=== PATIENT | male | born 1960 | race American Indian/Alaskan Native ===

== ENCOUNTER 2019-06-18 18:17 | Inpatient (IN) | payer MEDICAID ==
--- NOTE | 2019-06-18 18:52 | XRay Report ---
CHEST 1 VIEW 06/18/2019 6:31 PM INDICATION / CLINICAL INFORMATION: SOB. COMPARISON: None available. FINDINGS: SUPPORT DEVICES: None. HEART / MEDIASTINUM: No significant abnormality. LUNGS / PLEURA: Left upper lobe nodular parenchymal density with several adjacent surgical clips. Add itional pulmonary nodule within left mid lung field. No pneumothorax. ADDITIONAL FINDINGS: No significant additional findings. IMPRESSION: 1. Left-sided pulmonary nodules. Recommend chest CT. Signer Name: Raymond Sosa MD Signed: 06/18/2019 6:48 PM Workstation Name: [id number]
[2019-06-18 19:19] LABS: Basophils % (Auto) 0.7 % (0.0-1.8); Eosinophils # (Auto) 0.3 K/mm3 (0.0-0.4); Eosinophils % (Auto) 6.7 % (0.0-4.3); Hematocrit 44.7 % (35.5-45.6); Hemoglobin 14.7 gm/dl (11.8-15.2); Lymphocytes # (Auto) 1.4 K/mm3 (1.2-5.4); Lymphocytes % (Auto) 28.8 % (13.4-35.0); Mean Corpuscular HGB Conc 33 % (32-34); Mean Corpuscular Volume 104 fl (84-94); Monocytes # (Auto) 0.3 K/mm3 (0.0-0.8); Monocytes % (Auto) 7.2 % (0.0-7.3); Platelet Count 292 K/mm3 (140-440); Red Blood Count 4.28 M/mm3 (3.65-5.03); Red Cell Distribution Width 15.5 % (13.2-15.2)
--- NOTE | 2019-06-18 19:26 | Emergency Department Report ---
HPI - General Chief Complaint: Dyspnea/Respdistress Time Seen by Provider: 06/18/19 18:23 - HPI HPI: 59-year-old -[place] male presents to the emergency department with shortness of breath and/or respiratory distress. The patient had been using his nebulizer treatments at home without any relief. EMS arrived to find the patient short of breath and with a pulse ox in the 60s. He was given Solu- Medrol, epinephrine and some oxygen supplementation. At one point the patient told EMS that he was feeling like he was going to pass out and then EMS said he did. Since that time, and upon arrival, the patient has been going in and out of consciousness and responsiveness. The patient has a history of lung cancer in the left lung for which she receives some recent radiation therapy. All of his physicians are through the [facility]. ED Past Medical Hx - Past Medical History Hx of Cancer: Yes (lung) Hx HIV: Yes Additional medical history: chronic back pain - Surgical History Past Surgical History?: No - Social History Smoking Status: Current Every Day Smoker Substance Use Type: Alcohol ED Review of Systems ROS: Stated complaint: PAULA Other details as noted in HPI Comment: Unobtainable due to pts medical conditions Respiratory: shortness of breath Physical Exam - Physical Exam Vital Signs: Vital Signs 06/18/19 06/18/19 06/18/19 18:28 18:32 18:38 Temperature 97.7 F Pulse Rate 118 H 116 H Respiratory 38 H 22 Rate Blood Pressure Blood Pressure 196/124 166/106 [Left] O2 Sat by Pulse 100 100 100 Oximetry 06/18/19 06/18/19 18:54 18:57 Temperature Pulse Rate 100 H 106 H Respiratory 20 26 H Rate Blood Pressure 123/93 Blood Pressure 123/93 [Left] O2 Sat by Pulse 100 100 Oximetry Physical Exam: GENERAL: Patient is ill-appearing. HEENT: Normocephalic. Atraumatic. Patient has moist mucous membranes. EYES: Extraocular motions are intact. Pupils equal and reactive to light bilaterally. NECK: Supple. Trachea is midline. CHEST/LUNGS: Decreased breath sounds. Patient has shallow respirations with some accessory muscle use. There is respiratory distress noted. HEART/CARDIOVASCULAR: Regular. There is moderate tachycardia. There is no murmur. ABDOMEN: Abdomen is soft, nontender. Patient has normal bowel sounds. There is no abdominal distention. SKIN:Skin is warm and dry. . NEURO: The patient is unresponsive except for to painful stimuli. MUSCULOSKELETAL: There is no tenderness or deformity. There is no evidence of acute injury. ED Course Vital Signs 06/18/19 06/18/19 06/18/19 18:28 18:32 18:38 Temperature 97.7 F Pulse Rate 118 H 116 H Respiratory 38 H 22 Rate Blood Pressure Blood Pressure 196/124 166/106 [Left] O2 Sat by Pulse 100 100 100 Oximetry 06/18/19 06/18/19 18:54 18:57 Temperature Pulse Rate 100 H 106 H Respiratory 20 26 H Rate Blood Pressure 123/93 Blood Pressure 123/93 [Left] O2 Sat by Pulse 100 100 Oximetry - ABG Interpretation Ph: 7.039 PCO2: 85 PO2: 156 Bicarbonate: 23 Interpretation: respiratory acidosis ED Medical Decision Making - Lab Data Result diagrams: 06/18/19 18:44 06/18/19 18:44 - EKG Data -: EKG Interpreted by Id EKG shows normal: sinus rhythm, axis, intervals, QRS complexes, ST-T waves Rate: tachycardia - EKG Data When compared to previous EKG there are: previous EKG unavailable Interpretation: other (sinus tachycardia at 126 bpm) - Radiology Data Radiology results: report reviewed, image reviewed CHEST 1 VIEW 06/18/2019 6:31 PM INDICATION / CLINICAL INFORMATION: SOB. COMPARISON: None available. FINDINGS: SUPPORT DEVICES: None. HEART / MEDIASTINUM: No significant abnormality. LUNGS / PLEURA: Left upper lobe nodular parenchymal density with several adjacent surgical clips. Additional pulmonary nodule within left mid lung field. No pneumothorax. ADDITIONAL FINDINGS: No significant additional findings. IMPRESSION: 1. Left-sided pulmonary nodules. Recommend chest CT. CTA CHEST WITH IV CONTRAST INDICATION / CLINICAL INFORMATION: SOB, elevated dimer. TECHNIQUE: Axial CT images were obtained through the chest after injection of 100 mL IV contrast. 3 plane MIP and/or 3D reconstructions were produced. All CT scans at this location are performed using CT dose reduction for [facility] by means of automated exposure control. COMPARISON: Chest radiograph earlier today. FINDINGS: PULMONARY ARTERIES: No pulmonary emboli. THORACIC AORTA: No significant abnormality. HEART: No significant abnormality. CORONARY ARTERIES: Coronary artery calcifications are present. PLEURA: No pleural effusion. No pneumothorax. LYMPH NODES: No significant adenopathy. LUNGS: There is a 2 cm noncalcified pulmonary nodule in the left upper lobe. This was noted on recent chest radiograph. Additionally there is spiculated pulmonary mass in the left upper lobe adjacent to the pleura measuring approximately 2.4 cm. No additional abnormal findings are present within the left lung. No nodules are present within the right lung. There is a large bleb in the right lung apex. ADDITIONAL FINDINGS: None. UPPER ABDOMEN: No acute findings. SKELETAL STRUCTURES: No significant osseous abnormality. IMPRESSION: 1. No CT evidence for pulmonary embolism. 2. There is a 2.4 cm spiculated mass in the left upper lobe. There are 2 surgical clips adjacent to the mass. The appearance is worrisome for a bronchogenic carcinoma. 3. 2 cm noncalcified pulmonary nodule in the left upper lobe, just lateral to the pulmonary hilum. This is highly worrisome for pulmonary metastasis. 4. Right apical large bleb. - Medical Decision Making His patient presents with some shortness of breath and respiratory distress, hypoxia prior to arrival and altered mental status. An ABG was done that showed the patient to have hypercapnia with respiratory acidosis. The patient became more awake and alert after getting increased oxygen supplementation so we were able to use a BiPAP. Chest x-ray showed some left-sided pulmonary nodules. Lab s show some elevated LFTs, lactic acidosis, and an elevated d-dimer level. CT angiography was done that does not show any pulmonary embolism but shows a 2.4 cm spiculated mass in the left lung, another pulmonary nodule, and a right apical large bleb. Another ABG was done after the patient had been on the BiPAP and his PCO2 had come down to about 50. The patient is much more awake, alert and oriented. He will be admitted to the hospital for further evaluation and treatment was accepted for admission by the hospitalist, Dr. Jason. - Differential Diagnosis COPD, PE, Pneumonia, CHF Critical Care Time: Yes Critical care time in (mins) excluding proc time.: 35 Critical care attestation.: If time is entered above; I have spent that time in minutes in the direct care of this critically ill patient, excluding procedure time. Critical care time was spent on this patient and doing his initial evaluation, multiple re- evaluations, ordering and interpretation of labs and imaging, BiPAP management, discussion with the patient and his family. Critical Care Time: 35 minutes ED Disposition Clinical Impression: Acute respiratory distress, Hypercapnic acidosis, COPD exacerbation Lung cancer Qualifiers: Laterality: left Lung location: unspecified part of lung Qualified Code(s): C34.92 - Malignant neoplasm of unspecified part of left bronchus or lung Disposition: DC-09 OP ADMIT IP TO THIS HOSP Is pt being admited?: Yes Condition: Serious Time of Disposition: 21:35
[2019-06-18 19:47] LABS: Alanine Aminotransferase 81 units/L (7-56); Albumin 4.3 g/dL (3.9-5); BUN/Creatinine Ratio 9; Blood Urea Nitrogen 12 mg/dL (9-20); Hemolysis Index 15
--- NOTE | 2019-06-18 20:48 | Cat Scan Report ---
CTA CHEST WITH IV CONTRAST INDICATION / CLINICAL INFORMATION: SOB, elevated dimer. TECHNIQUE: Axial CT images were obtained through the chest after injection of 100 mL IV contrast. 3 plane MIP an d/or 3D reconstructions were produced. All CT scans at this location are performed using CT dose redu ction for [facility] by means of automated exposure control. COMPARISON: Chest radiograph earlier today. FINDINGS: PULMONARY ARTERIES: No pulmonary emboli. THORACIC AORTA: No significant abnormality. HEART: No significant abnormality. CORONARY ARTERIES: Coronary artery calcifications are present. PLEURA: No pleural effusion. No pneumothorax. LYMPH NODES: No significant adenopathy. LUNGS: There is a 2 cm noncalcified pulmonary nodule in the left upper lobe. This was noted on recent chest radiograph. Additionally there is spiculated pulmonary mass in the left upper lobe adjacent to the pleura measuring approximately 2.4 cm. No additional abnormal findings are present within the le ft lung. No nodules are present within the right lung. There is a large bleb in the right lung apex. ADDITIONAL FINDINGS: None. UPPER ABDOMEN: No acute findings. SKELETAL STRUCTURES: No significant osseous abnormality. IMPRESSION: 1. No CT evidence for pulmonary embolism. 2. There is a 2.4 cm spiculated mass in the left upper lobe. There are 2 surgical clips adjacent to t he mass. The appearance is worrisome for a bronchogenic carcinoma. 3. 2 cm noncalcified pulmonary nodule in the left upper lobe, just lateral to the pulmonary hilum. Th is is highly worrisome for pulmonary metastasis. 4. Right apical large bleb. Signer Name: Rica Wells MD Signed: 06/18/2019 8:44 PM Workstation Name: [id number]. [id number]
[2019-06-18] MEDS ORDERED: methylPREDNISolone Sod Succinate 125 MG/2 ML INJ IV ONE (21:35)
[2019-06-18] MEDS ORDERED: ACETAMINOPHEN 325 MG TAB PO PRN (22:11)
[2019-06-18] MEDS ORDERED: ONDANSETRON 4 MG/2 ML INJ IV PRN (22:11)
[2019-06-18] MEDS ORDERED: MAGNESIUM HYDROXIDE (MOM) ORAL LIQD UDC PO PRN (22:11)
--- NOTE | 2019-06-18 22:25 | History and Physical Report ---
History of Present Illness Date of examination: 06/18/19 Date of admission: 06/18/2019 Chief complaint: Shortness of breath Past History Past Medical History: COPD, HIV/AIDS, other (Lung cancer) Past Surgical History: No surgical history Social history: full code Family history: diabetes, hypertension, other (asthma) Medications and Allergies Allergies Allergy/AdvReac Type Severity Reaction Status Date / Time No Known Allergies Allergy Unverified 07/12/13 10:15 Active Meds: Active Medications Acetaminophen (Tylenol) 650 mg PO Q6H PRN PRN Reason: Pain MILD(1-3)/Fever >100.5/BELL Albuterol/Ipratropium (Duoneb *Not For Prn Use*) 1 ampul IH Q4HRT [facility] Magnesium Hydroxide (Milk Of Magnesia) 30 ml PO Q4H PRN PRN Reason: Constipation Methylprednisolone Sodium Succinate (Solu-Medrol) 40 mg IV Q6HR [facility] Ondansetron HCl (Zofran) 4 mg IV Q8H PRN PRN Reason: Nausea And Vomiting Sodium Chloride (Sodium Chloride Flush Syringe 10 Ml) 10 ml IV BID [facility] Sodium Chloride (Sodium Chloride Flush Syringe 10 Ml) 10 ml IV PRN PRN PRN Reason: LINE FLUSH Review of Systems Constitutional: no fever, no chills Cardiovascular: chest pain, no palpitations Respiratory: cough, shortness of breath Gastrointestinal: no abdominal pain, no nausea, no vomiting, no diarrhea Genitourinary Male: no dysuria, no hematuria, no urinary frequency Musculoskeletal: no neck pain Integumentary: no rash, no pruritis Neurological: no weakness, no seizures, no headaches Exam - Constitutional Vitals: Temp Pulse Resp BP Pulse Ox 97.7 F 104 H 22 132/90 99 06/18/19 18:38 06/18/19 21:26 06/18/19 21:26 06/18/19 21:31 06/18/19 21:31 General appearance: Present: no acute distress, well-nourished - EENT Eyes: Present: PERRL, EOM intact ENT: hearing intact, clear oral mucosa, dentition normal - Neck Neck: Present: supple, normal ROM - Respiratory Respiratory: bilateral: wheezing - Cardiovascular Rhythm: regular Heart Sounds: Present: S1 & S2 - Extremities Extremities: no ischemia, pulses intact, pulses symmetrical, No edema, Full ROM Peripheral Pulses: within normal limits - Abdominal General gastrointestinal: Present: soft, non-tender, non-distended - Integumentary Integumentary: Present: clear, warm, dry - Musculoskeletal Musculoskeletal: strength equal bilaterally - Psychiatric Psychiatric: appropriate mood/affect, intact judgment & insight, cooperative - Neurologic Neurologic: CNII-XII intact, moves all extremities Results - Labs CBC & Chem 7: 06/18/19 18:44 06/18/19 18:44 Labs: Abnormal lab results 06/18/19 06/18/19 06/18/19 Range/Units 18:44 18:44 18:44 MCV 104 H (84-94) fl MCH 34 H (28-32) pg RDW 15.5 H (13.2-15.2) % Eos % (Auto) 6.7 H (0.0-4.3) % D-Dimer 845.61 H (0-234) ng/mlDDU POC ABG pH (7.35-7.45) POC ABG pO2 (80-105) Carbon Dioxide 17 L (22-30) mmol/L Glucose 159 H (75-100) mg/dL Lactic Acid (0.7-2.0) mmol/L AST 139 H (5-40) units/L ALT 81 H (7-56) units/L 06/18/19 06/18/19 Range/Units 18:44 18:44 MCV (84-94) fl MCH (28-32) pg RDW (13.2-15.2) % Eos % (Auto) (0.0-4.3) % D-Dimer (0-234) ng/mlDDU POC ABG pH 7.039 L (7.35-7.45) POC ABG pO2 156 H (80-105) Carbon Dioxide (22-30) mmol/L Glucose (75-100) mg/dL Lactic Acid 3.20 H* (0.7-2.0) mmol/L AST (5-40) units/L ALT (7-56) units/L Assessment and Plan - Patient Problems (1) Acute respiratory distress Current Visit: Yes Status: Acute (2) COPD exacerbation Current Visit: Yes Status: Acute (3) Hypercapnic acidosis Current Visit: Yes Status: Acute (4) Lung cancer Current Visit: Yes Status: Acute (5) HIV (human immunodeficiency virus infection) Current Visit: Yes Status: Acute (6) DVT prophylaxis Current Visit: Yes Status: Acute
[2019-06-19] MEDS ORDERED: IPRATROPIUM/ALBUTEROL SULFATE 3 ML AMPUL.NEB IH ONE ×2 (02:53→07:54)
[2019-06-19] MEDS: IPRATROPIUM/ALBUTEROL SULFATE 3 ML AMPUL.NEB IH SCH ×4 (03:03→22:36)
[2019-06-19 03:40] LABS: Hematocrit 41.2 % (35.5-45.6); Hemoglobin 13.6 gm/dl (11.8-15.2); Mean Corpuscular HGB Conc 33 % (32-34); Mean Corpuscular Volume 103 fl (84-94); Platelet Count 259 K/mm3 (140-440); Red Cell Distribution Width 15.2 % (13.2-15.2)
[2019-06-19 03:49] LABS: Partial Thromboplastin Time 23.6 Sec. (24.2-36.6)
[2019-06-19 03:54] LABS: INR 0.85 (0.87-1.13)
[2019-06-19 03:58] LABS: BUN/Creatinine Ratio 13; Blood Urea Nitrogen 15 mg/dL (9-20); Calcium 9.5 mg/dL (8.4-10.2); Hemolysis Index 1
[2019-06-19] MEDS: methylPREDNISolone Sod Succinate 40 MG/1 ML INJ IV SCH ×4 (04:36→21:04)
[2019-06-19 04:58] LABS: Basophils % (Manual) 0 % (0.0-1.8); Platelet Estimate Consistent w Auto; RBC Morphology Normal; Total Cells Counted 100
--- NOTE | 2019-06-19 06:11 | History and Physical Report ---
History of Present Illness Date of examination: 06/18/19 Date of admission: 06/18/19 21:36 Chief complaint: Shortness of breath Altered mental status History of present illness: 59-year-old -[place] Citizen male with known history of left lung cancer and COPD brought into the emergency room today with shortness of breath. Patient was said to have been found by EMS having difficulty breathing with oxygen saturation in the 60s. He was given Solu-Medrol, epinephrine and placed on oxygen. He was said to be going in and out of responsiveness in route to the hospital. Denies any fever or chills, no nausea vomiting and no diarrhea. Patient still continues to smoke 1 to 2 cigarettes daily and also uses almost marijuana on a daily basis. Upon arrival in the emergency room patient was placed on BiPAP and given some nebulizing treatment with improvement in his oxygen saturation. He had an elevated d-dimer however a CT angiogram was negative for pulmonary embolism. Past History Past Medical History: COPD, HIV/AIDS, other (Lung cancer, chronic back pain) Past Surgical History: No surgical history Social history: full code Family history: diabetes, hypertension, other (asthma) Medications and Allergies Allergies Allergy/AdvReac Type Severity Reaction Status Date / Time No Known Allergies Allergy Unverified 07/12/13 10:15 Active Meds: Active Medications Acetaminophen (Tylenol) 650 mg PO Q6H PRN PRN Reason: Pain MILD(1-3)/Fever >100.5/BELL Albuterol/Ipratropium (Duoneb *Not For Prn Use*) 1 ampul IH Q4HRT [facility] Last Admin: 06/19/19 03:03 Dose: 1 ampul Documented by: Magnesium Hydroxide (Milk Of Magnesia) 30 ml PO Q4H PRN PRN Reason: Constipation Methylprednisolone Sodium Succinate (Solu-Medrol) 40 mg IV Q6H [facility] Last Admin: 06/19/19 04:36 Dose: 40 mg Documented by: Ondansetron HCl (Zofran) 4 mg IV Q8H PRN PRN Reason: Nausea And Vomiting Sodium Chloride (Sodium Chloride Flush Syringe 10 Ml) 10 ml IV BID [facility] Sodium Chloride (Sodium Chloride Flush Syringe 10 Ml) 10 ml IV PRN PRN PRN Reason: LINE FLUSH Review of Systems Constitutional: no weight loss, no fever, no chills Ears, nose, mouth and throat: no headache Cardiovascular: no chest pain, no palpitations Respiratory: shortness of breath, wheezing, no cough Gastrointestinal: no abdominal pain, no nausea, no vomiting, no diarrhea, no BRBPR, no melena Genitourinary Male: no dysuria, no hematuria, no urinary frequency, no nocturia Musculoskeletal: no neck stiffness, no neck pain Integumentary: no rash, no pruritis Neurological: change in mentation, no seizures, no syncope Psychiatric: no anxiety Exam - Constitutional Vitals: Temp Pulse Resp BP Pulse Ox 97.7 F 86 19 151/97 95 06/18/19 18:38 06/19/19 04:01 06/19/19 04:01 06/19/19 04:01 06/19/19 04:01 General appearance: Present: mild distress, well-nourished - EENT Eyes: Present: PERRL, EOM intact ENT: hearing intact, clear oral mucosa - Neck Neck: Present: supple, normal ROM - Respiratory Respiratory: bilateral: wheezing - Cardiovascular Rhythm: regular Heart Sounds: Present: S1 & S2 - Extremities Extremities: no ischemia, pulses intact, pulses symmetrical, No edema, Full ROM Peripheral Pulses: within normal limits - Abdominal General gastrointestinal: Present: soft, non-tender, non-distended - Integumentary Integumentary: Present: clear, warm, dry - Musculoskeletal Musculoskeletal: strength equal bilaterally - Psychiatric Psychiatric: appropriate mood/affect, intact judgment & insight - Neurologic Neurologic: CNII-XII intact, moves all extremities Results - Labs CBC & Chem 7: 06/19/19 03:05 06/19/19 03:05 Labs: Abnormal lab results 06/18/19 06/18/19 06/18/19 Range/Units 18:44 18:44 18:44 MCV 104 H (84-94) fl MCH 34 H (28-32) pg RDW 15.5 H (13.2-15.2) % Eos % (Auto) 6.7 H (0.0-4.3) % Seg Neuts % (Manual) (40.0-70.0) % Lymphocytes % (Manual) (13.4-35.0) % Lymphocytes # (Manual) (1.2-5.4) K/mm3 PT (12.2-14.9) Sec. INR (0.87-1.13) APTT (24.2-36.6) Sec. D-Dimer 845.61 H (0-234) ng/mlDDU POC ABG pH (7.35-7.45) POC ABG pCO2 (35-45) POC ABG pO2 (80-105) Carbon Dioxide 17 L (22-30) mmol/L Glucose 159 H (75-100) mg/dL Lactic Acid (0.7-2.0) mmol/L AST 139 H (5-40) units/L ALT 81 H (7-56) units/L 06/18/19 06/18/19 06/18/19 Range/Units 18:44 18:44 21:25 MCV (84-94) fl MCH (28-32) pg RDW (13.2-15.2) % Eos % (Auto) (0.0-4.3) % Seg Neuts % (Manual) (40.0-70.0) % Lymphocytes % (Manual) (13.4-35.0) % Lymphocytes # (Manual) (1.2-5.4) K/mm3 PT (12.2-14.9) Sec. INR (0.87-1.13) APTT (24.2-36.6) Sec. D-Dimer (0-234) ng/mlDDU POC ABG pH 7.039 L 7.289 L (7.35-7.45) POC ABG pCO2 51.1 H (35-45) POC ABG pO2 156 H 252 H (80-105) Carbon Dioxide (22-30) mmol/L Glucose (75-100) mg/dL Lactic Acid 3.20 H* (0.7-2.0) mmol/L AST (5-40) units/L ALT (7-56) units/L 06/19/19 06/19/19 06/19/19 Range/Units 03:05 03:05 03:05 MCV 103 H (84-94) fl MCH 34 H (28-32) pg RDW (13.2-15.2) % Eos % (Auto) (0.0-4.3) % Seg Neuts % (Manual) 94.0 H (40.0-70.0) % Lymphocytes % (Manual) 4.0 L (13.4-35.0) % Lymphocytes # (Manual) 0.2 L (1.2-5.4) K/mm3 PT 11.7 L (12.2-14.9) Sec. INR 0.85 L (0.87-1.13) APTT 23.6 L (24.2-36.6) Sec. D-Dimer (0-234) ng/mlDDU POC ABG pH (7.35-7.45) POC ABG pCO2 (35-45) POC ABG pO2 (80-105) Carbon Dioxide 21 L (22-30) mmol/L Glucose 220 H (75-100) mg/dL Lactic Acid (0.7-2.0) mmol/L AST (5-40) units/L ALT (7-56) units/L Assessment and Plan - Patient Problems (1) Acute respiratory distress Current Visit: Yes Status: Acute Plan to address problem: This is secondary to exacerbation of COPD with accompanying hypercapnia. Patient has been placed on BiPAP. We will keep oxygen saturation greater or equal to 92%. (2) COPD exacerbation Current Visit: Yes Status: Acute Plan to address problem: Placed on nebulizing treatments and IV steroid. (3) Hypercapnic acidosis Current Visit: Yes Status: Acute Plan to address problem: Possibly secondary to the COPD. He has been placed on BiPAP. We placed a consult to pulmonology for further evaluation and recommendation. (4) Lung cancer Current Visit: Yes Status: Acute Qualifiers: Laterality: left Lung location: unspecified part of lung Qualified Code(s): C34.92 - Malignant neoplasm of unspecified part of left bronchus or lung Plan to address problem: Patient has received radiation therapy. He receives his care through the [facility]. (5) HIV (human immunodeficiency virus infection) Current Visit: Yes Status: Acute Plan to address problem: Viral load currently undetectable. Patient follows up with his private physician. (6) DVT prophylaxis Current Visit: Yes Status: Acute Plan to address problem: We will placed on subcutaneous heparin.
[2019-06-19] MEDS ORDERED: methylPREDNISolone Sod Succinate 40 MG/1 ML INJ ONE ×2 (06:20→10:02)
[2019-06-19] MEDS ORDERED: ALBUTEROL 8.5 GM INHALATION IH PRN (08:07)
[2019-06-19] MEDS ORDERED: ACETAMINOPHEN 325 MG TAB ONE (08:19)
[2019-06-19] MEDS ORDERED: NON-FORMULARY EACH (Bictegrav/Emtricit/Tenofov Ala 1 TAB) PO SCH (10:00)
[2019-06-19] MEDS ORDERED: MIRTAZAPINE 45 MG PO SCH (10:00)
[2019-06-19] MEDS ORDERED: FOLIC ACID 1 MG TAB ONE (10:02)
[2019-06-19] MEDS: FOLIC ACID 1 MG TAB PO SCH (11:22)
[2019-06-19] MEDS: LISINOPRIL 20 MG TAB PO SCH (12:51)
[2019-06-19] MEDS: hydrOXYzine HCL 25 MG TAB PO SCH (12:51)
[2019-06-19] MEDS: CHLORTHALIDONE 25 MG TAB PO SCH (12:52)
--- NOTE | 2019-06-19 13:39 | Event Note ---
Date: 06/19/19 Patient seen and examined. This is a follow-up from an admission earlier this morning. We will continue plan as outlined in H&P. Time spent equals 25 minutes with greater than 50% spent on coordination of care and counseling.
[2019-06-19] MEDS ORDERED: ALBUTEROL 2.5 MG/3 ML NEBU IH PRN (14:00)
--- NOTE | 2019-06-19 14:41 | Consultation ---
History of Present Illness Consult date: 06/19/19 Reason for consult: dyspnea, asthma, COPD History of present illness: PULMONARY and CRITICAL CARE CONSULTATION DR. Mohsen Snyder Thank you for asking us to participate in the care of this patient. 59yo AAM with PMH of Stage 1 nodule/left lung cancer ([place]-10/2018 with radiation), COPD, HTN, & HIV+ brought into the emergency room today with shortness of breath. Patient was said to have been found by EMS having difficulty breathing with oxygen saturation in the 60s. He was given Solu- Medrol, epinephrine and placed on oxygen. He was said to be going in and out of responsiveness in route to the hospital. Denies any fever or chills, no nausea vomiting and no diarrhea. Upon arrival in the emergency room patient was placed on BiPAP and given some nebulizing treatment with improvement in his oxygen saturation. He had an elevated d-dimer however a CT angiogram was negative for pulmonary embolism. Patient is awake and alert. Patient has O2 saturation of 96% on room air. Patient is afebrile with no leukocytosis. Patient has history of 47 pack years (1.5 packs daily), still continues to smoke 1 to 2 cigarettes daily, and also uses almost marijuana on a daily basis. Patient ABG 06/18/2019 pH 7.3, pCO2 51, pO2 252, HCO3 25, O2 Sat 100, FiO2 60%. Chest X-ray Reported 06/18/2019 Left upper lobe nodular parenchymal density with several adjacent surgical clips. Additional pulmonary nodule within left mid lung field. No pneumothorax. Left-sided pulmonary nodules. Recommend chest CT. Chest CTA Reported 06/18/[address] evidence for pulmonary embolism. 2. There is a 2.4 cm spiculated mass in the left upper lobe. There are 2 surgical clips adjacent to the mass. The appearance is worrisome for a bronchogenic carcinoma. 3. 2 cm noncalcified pulmonary nodule in the left upper lobe, just lateral to the pulmonary hilum. This is highly worrisome for pulmonary metastasis. 4. Right apical large bleb. Past History Past Medical History: COPD, HIV/AIDS, hypertension, other (Lung cancer, chronic back pain) Past Surgical History: No surgical history Social history: , smoking, alcohol abuse, full code Family history: diabetes, hypertension, other (asthma) Medications and Allergies Allergies Allergy/AdvReac Type Severity Reaction Status Date / Time No Known Allergies Allergy Unverified 07/12/13 10:15 Home Medications Medication Instructions Recorded Confirmed Last Taken Type Albuterol INH(or & Nicu Only) 1 puff IH Q6HR PRN 06/19/19 06/19/19 06/17/19 History [ProAir HFA Inhaler] Bictegrav/Emtricit/Tenofov Ala 1 tab PO QDAY 06/19/19 06/19/19 06/17/19 History [Biktarvy 50-200-25 mg (Nf)] Chlorthalidone [Thalitone] 25 mg PO QDAY 06/19/19 06/19/19 06/17/19 History Folic Acid 1 tab PO QDAY 06/19/19 06/19/19 06/17/19 History Mirtazapine [Remeron 45mg TAB] 45 mg PO QDAY 06/19/19 06/19/19 06/17/19 History Sildenafil Citrate [Viagra] 1 tab PO PRN 06/19/19 06/19/19 06/17/19 History Tiotropium Gardiner [Spiriva] 1 puff IH QDAY 06/19/19 06/19/19 06/17/19 History Triamcinolone 0.1% [Kenalog 0.1% 1 applic TP TID 06/19/19 06/19/19 06/17/19 History CREAM] hydrOXYzine HCL [Atarax] 1 tab PO QDAY 06/19/19 06/19/19 06/17/19 History lisinopriL [Zestril TAB] 1 tab PO QDAY 06/19/19 06/19/19 06/17/19 History Active Meds: Active Medications Acetaminophen (Tylenol) 650 mg PO Q6H PRN PRN Reason: Pain MILD(1-3)/Fever >100.5/BELL Albuterol (Proventil) 2.5 mg IH Q6HRT PRN PRN Reason: Dyspnea Albuterol/Ipratropium (Duoneb *Not For Prn Use*) 1 ampul IH Q4HRT [facility] Last Admin: 06/19/19 13:49 Dose: 1 ampul Documented by: Chlorthalidone (Thalitone) 25 mg PO QDAY [facility] Last Admin: 01/13/20 12:52 Dose: Not Given Documented by: Folic Acid (Folvite) 1 mg PO QDAY [facility] Last Admin: 06/19/19 11:22 Dose: 1 mg Documented by: Hydroxyzine HCl (Atarax) 25 mg PO QDAY [facility] Last Admin: 06/19/19 12:51 Dose: 25 mg Documented by: Lisinopril (Zestril) 20 mg PO QDAY [facility] Last Admin: 06/19/19 12:51 Dose: 20 mg Documented by: Magnesium Hydroxide (Milk Of Magnesia) 30 ml PO Q4H PRN PRN Reason: Constipation Methylprednisolone Sodium Succinate (Solu-Medrol) 40 mg IV Q6H [facility] Last Admin: 06/19/19 14:02 Dose: 40 mg Documented by: Mirtazapine (Remeron) 15 mg PO QHS [facility] Mirtazapine (Remeron) 30 mg PO QHS [facility] Miscellaneous Medication (Bictegrav/Emtricit/Tenofov Ala) 1 tab PO QDAY [facility] Ondansetron HCl (Zofran) 4 mg IV Q8H PRN PRN Reason: Nausea And Vomiting Sodium Chloride (Sodium Chloride Flush Syringe 10 Ml) 10 ml IV BID [facility] Last Admin: 06/19/19 12:52 Dose: Not Given Documented by: Sodium Chloride (Sodium Chloride Flush Syringe 10 Ml) 10 ml IV PRN PRN PRN Reason: LINE FLUSH Tiotropium Gardiner (Spiriva) 1 puff IH QDAY [facility] Review of Systems All systems: negative Physical Examination Vital signs: Vital Signs Pulse Resp BP Pulse Ox 132 H 19 233/142 99 06/18/19 18:17 06/18/19 18:17 06/18/19 18:17 06/18/19 18:17 General appearance: no acute distress, alert Eyes: non-icteric ENT: oropharynx moist Neck: supple Effort: normal Cardiovascular: regular rate and rhythm Gastrointestinal: normoactive bowel sounds, soft, non-tender Integumentary: normal Extremities: no cyanosis Musculoskeletal: no deformities Gait: normal gait, normal posture normal mental status mood appropriate, affect normal Results - Laboratory Findings CBC and BMP: 06/19/19 03:05 06/19/19 03:05 ABG POC ABG pH 7.289 (7.35-7.45) L 06/18/19 21:25 POC ABG pCO2 51.1 (35-45) H 06/18/19 21:25 POC ABG pO2 252 (80-105) H 06/18/19 21:25 POC ABG HCO3 24.5 (22-26 mml/L) 06/18/19 21:25 POC ABG Total CO2 26 (23-27mmol/L) 06/18/19 21:25 POC ABG O2 Sat 100 06/18/19 21:25 PT/INR, D-dimer PT 11.7 Sec. (12.2-14.9) L 06/19/19 03:05 INR 0.85 (0.87-1.13) L 06/19/19 03:05 D-Dimer 845.61 ng/mlDDU (0-234) H 06/18/19 18:44 Abnormal lab findings: Abnormal Labs 06/18/19 06/18/19 06/18/19 18:44 18:44 18:44 MCV 104 H MCH 34 H RDW 15.5 H Eos % (Auto) 6.7 H Seg Neuts % (Manual) Lymphocytes % (Manual) Lymphocytes # (Manual) PT INR APTT D-Dimer 845.61 H POC ABG pH POC ABG pCO2 POC ABG pO2 Carbon Dioxide 17 L Glucose 159 H Lactic Acid AST 139 H ALT 81 H 06/18/19 06/18/19 06/18/19 18:44 18:44 21:25 MCV MCH RDW Eos % (Auto) Seg Neuts % (Manual) Lymphocytes % (Manual) Lymphocytes # (Manual) PT INR APTT D-Dimer POC ABG pH 7.039 L 7.289 L POC ABG pCO2 51.1 H POC ABG pO2 156 H 252 H Carbon Dioxide Glucose Lactic Acid 3.20 H* AST ALT 06/19/19 06/19/19 06/19/19 03:05 03:05 03:05 MCV 103 H MCH 34 H RDW Eos % (Auto) Seg Neuts % (Manual) 94.0 H Lymphocytes % (Manual) 4.0 L Lymphocytes # (Manual) 0.2 L PT 11.7 L INR 0.85 L APTT 23.6 L D-Dimer POC ABG pH POC ABG pCO2 POC ABG pO2 Carbon Dioxide 21 L Glucose 220 H Lactic Acid AST ALT - Diagnostic Findings Chest x-ray: report reviewed (Reported left sided pulmonary nodules.), image reviewed CT scan - chest: report reviewed, image reviewed Additional studies: CTA of chest 06/18/19 IMPRESSION: 1. No CT evidence for pulmonary embolism. 2. There is a 2.4 cm spiculated mass in the left upper lobe. There are 2 horton rgical clips adjacent to the mass. The appearance is worrisome for a bronchogenic carcinoma. 3. 2 cm noncalcified pulmonary nodule in the left upper lobe, just lateral to the pulmonary hilum. This is highly worrisome for pulmonary metastasis. 4. Right apical large bleb. Assessment and Plan 59yo AAM with PMH of Stage 1 nodule/left lung cancer ([place]-10/2018 with radiation), COPD, HTN, & HIV+ brought into the emergency room today with shortness of breath. Patient was said to have been found by EMS having difficulty breathing with oxygen saturation in the 60s. He was given Solu- Medrol, epinephrine and placed on oxygen. He was said to be going in and out of responsiveness in route to the hospital. Denies any fever or chills, no nausea vomiting and no diarrhea. Upon arrival in the emergency room patient was placed on BiPAP and given some nebulizing treatment with improvement in his oxygen saturation. He had an elevated d-dimer however a CT angiogram was negative for pulmonary embolism. Patient is awake and alert. Patient has O2 saturation of 96% on room air. Patient is afebrile with no leukocytosis. Patient has history of 47 pack years (1.5 packs daily), still continues to smoke 1 to 2 cigarettes daily, and also uses almost marijuana on a daily basis. Patient ABG 06/18/2019 pH 7.3, pCO2 51, pO2 252, HCO3 25, O2 Sat 100, FiO2 60%. Chest X-ray Reported 06/18/2019 Left upper lobe nodular parenchymal density with several adjacent surgical clips. Additional pulmonary nodule within left mid lung field. No pneumothorax. Left-sided pulmonary nodules. Recommend chest CT. Chest CTA Reported 06/18/[address] evidence for pulmonary embolism. 2. There is a 2.4 cm spiculated mass in the left upper lobe. There are 2 surgical clips adjacent to the mass. The appearance is worrisome for a bronchogenic carcinoma. 3. 2 cm noncalcified pulmonary nodule in the left upper lobe, just lateral to the pulmonary hilum. This is highly worrisome for pulmonary metastasis. 4. Right apical large bleb. - Patient Problems (1) Acute hypercapnic respiratory failure Current Visit: Yes Status: Acute Plan to address problem: 1. 2L O2 via nasal canula if O2 saturation less than 90% 2. Albuterol/Atrovent aerosol treatment q6 3. Continue IV Solumedrol 4. Recommend DVT and GI prophylaxis. (2) COPD exacerbation Current Visit: Yes Status: Acute Plan to address problem: 1. 2L O2 via nasal canula if O2 saturation less than 90% 2. Albuterol/Atrovent aerosol treatment q6 3. Continue IV Solumedrol 4. DVT and GI prophylaxis. 5. Counselled to stop smoking cigaretts as well as Marijuana. (3) DVT prophylaxis Current Visit: Yes Status: Acute Plan to address problem: Recommend DVT prophylaxis. (4) HIV (human immunodeficiency virus infection) Current Visit: Yes Status: Acute Plan to address problem: Management as per Infectious diseases. (5) Lung cancer Current Visit: Yes Status: Acute Qualifiers: Laterality: left Lung location: unspecified part of lung Qualified Code(s): C34.92 - Malignant neoplasm of unspecified part of left bronchus or lung Plan to address problem: 1. 2L O2 via nasal canula if O2 saturation less than 90% 2. Albuterol/Atrovent aerosol treatment q6 3. Continue IV Solumedrol 4. Patient presently following at [facility]. Says receiving radiation treatments at [place]. 5. Patient wants to follow at [place] for lung nodules. 6. Try to get records from [place].
[2019-06-19] MEDS: MIRTAZAPINE 30 MG TAB PO SCH (21:04)
[2019-06-19] MEDS: MIRTAZAPINE 15 MG TAB PO SCH (21:04)
[2019-06-19] MEDS: TEMAZEPAM 15 MG CAP PO PRN (22:05)
[2019-06-19] MEDS: hydrALAZINE 20 MG/1 ML INJ IV PRN (22:05)
[2019-06-20] MEDS: methylPREDNISolone Sod Succinate 40 MG/1 ML INJ IV SCH ×4 (02:19→21:53)
[2019-06-20] MEDS: TIOTROPIUM 18 MCG CAP INHALATION IH SCH ×2 (02:25→08:28)
[2019-06-20] MEDS: IPRATROPIUM/ALBUTEROL SULFATE 3 ML AMPUL.NEB IH SCH ×4 (02:25→21:02)
[2019-06-20] MEDS: hydrALAZINE 20 MG/1 ML INJ IV PRN (04:14)
[2019-06-20] MEDS: NICOTINE 21 MG/24 HR PATCH TD SCH (09:53)
[2019-06-20] MEDS: hydrOXYzine HCL 25 MG TAB PO SCH (09:53)
[2019-06-20] MEDS: FOLIC ACID 1 MG TAB PO SCH (09:53)
[2019-06-20] MEDS: LISINOPRIL 20 MG TAB PO SCH (09:53)
[2019-06-20] MEDS: CHLORTHALIDONE 25 MG TAB PO SCH (09:54)
[2019-06-20 10:36] LABS: Alanine Aminotransferase 64 units/L (7-56); Albumin 4.4 g/dL (3.9-5); BUN/Creatinine Ratio 15; Blood Urea Nitrogen 17 mg/dL (9-20); Calcium 10.1 mg/dL (8.4-10.2); Hemolysis Index 12
--- NOTE | 2019-06-20 15:53 | Progress Note ---
Assessment and Plan Assessment and plan: Acute respiratory distress This is secondary to exacerbation of COPD with accompanying hypercapnia. Marlena ent has been placed on BiPAP. We will keep oxygen saturation greater or equal to 92%. pulm following COPD exacerbation Placed on nebulizing treatments and IV steroid. Hypercapnic acidosis Possibly secondary to the COPD. He has been placed on BiPAP. Pulm following Lung cancer Patient has received radiation therapy. He receives his care through the [facility]. HIV (human immunodeficiency virus infection) Viral load currently undetectable. Patient follows up with his private physicia n. DVT prophylaxis We will placed on subcutaneous heparin. Poss dc home tomorrow History Interval history: Shortness of breath Hospitalist Physical - Physical exam Narrative exam: GEN: Not in acute distress, lying in bed HEENT: Normocephalic, atraumatic, Neck: supple, No JVD Lungs: Decreased breath sounds bilaterally, no wheeze, heart;S1 and S2 reg, no murmurs Abd:soft, non tender, non distended, normal bowel sounds Ext: No edema, no clubbing, no cyanosis Neuro: AAO X 3, no focal neurological signs - Constitutional Vitals: Temp Pulse Resp BP Pulse Ox 97.9 F 106 H 16 163/99 95 06/20/19 08:19 06/20/19 15:15 06/20/19 15:15 06/20/19 08:19 06/20/19 08:19 Results - Labs CBC & Chem 7: 06/19/19 03:05 06/20/19 09:23 Labs: Laboratory Last Values WBC 6.1 K/mm3 (4.5-11.0) 06/19/19 03:05 RBC 4.00 M/mm3 (3.65-5.03) 06/19/19 03:05 Hgb 13.6 gm/dl (11.8-15.2) 06/19/19 03:05 Hct 41.2 % (35.5-45.6) 06/19/19 03:05 MCV 103 fl (84-94) H 06/19/19 03:05 MCH 34 pg (28-32) H 06/19/19 03:05 MCHC 33 % (32-34) 06/19/19 03:05 RDW 15.2 % (13.2-15.2) 06/19/19 03:05 Plt Count 259 K/mm3 (140-440) 06/19/19 03:05 Lymph % (Auto) 28.8 % (13.4-35.0) 06/18/19 18:44 Stark % (Auto) 7.2 % (0.0-7.3) 06/18/19 18:44 Eos % (Auto) 6.7 % (0.0-4.3) H 06/18/19 18:44 Baso % (Auto) 0.7 % (0.0-1.8) 06/18/19 18:44 Lymph # 1.4 K/mm3 (1.2-5.4) 06/18/19 18:44 Stark # 0.3 K/mm3 (0.0-0.8) 06/18/19 18:44 Eos # 0.3 K/mm3 (0.0-0.4) 06/18/19 18:44 Baso # 0.0 K/mm3 (0.0-0.1) 06/18/19 18:44 Add Manual Diff Complete 06/19/19 03:05 Total Counted 100 06/19/19 03:05 Seg Neutrophils % Administrator Of Home Health 06/19/19 03:05 Seg Neuts % (Manual) 94.0 % (40.0-70.0) H 06/19/19 03:05 Band Neutrophils % 0 % 06/19/19 03:05 Lymphocytes % (Manual) 4.0 % (13.4-35.0) L 06/19/19 03:05 Reactive Lymphs % (Man) 0 % 06/19/19 03:05 Monocytes % (Manual) 1.0 % (0.0-7.3) 06/19/19 03:05 Eosinophils % (Manual) 1.0 % (0.0-4.3) 06/19/19 03:05 Basophils % (Manual) 0 % (0.0-1.8) 06/19/19 03:05 Metamyelocytes % 0 % 06/19/19 03:05 Myelocytes % 0 % 06/19/19 03:05 Promyelocytes % 0 % 06/19/19 03:05 Blast Cells % 0 % 06/19/19 03:05 Nucleated RBC % Not Reportable 06/19/19 03:05 Seg Neutrophils # 2.7 K/mm3 (1.8-7.7) 06/18/19 18:44 Seg Neutrophils # Man 5.7 K/mm3 (1.8-7.7) 06/19/19 03:05 Band Neutrophils # 0.0 K/mm3 06/19/19 03:05 Lymphocytes # (Manual) 0.2 K/mm3 (1.2-5.4) L 06/19/19 03:05 Abs React Lymphs (Man) 0.0 K/mm3 06/19/19 03:05 Monocytes # (Manual) 0.1 K/mm3 (0.0-0.8) 06/19/19 03:05 Eosinophils # (Manual) 0.1 K/mm3 (0.0-0.4) 06/19/19 03:05 Basophils # (Manual) 0.0 K/mm3 (0.0-0.1) 06/19/19 03:05 Metamyelocytes # 0.0 K/mm3 06/19/19 03:05 Myelocytes # 0.0 K/mm3 06/19/19 03:05 Promyelocytes # 0.0 K/mm3 06/19/19 03:05 Blast Cells # 0.0 K/mm3 06/19/19 03:05 WBC Morphology Not Reportable 06/19/19 03:05 Hypersegmented Neuts Not Reportable 06/19/19 03:05 Hyposegmented Neuts Not Reportable 06/19/19 03:05 Hypogranular Neuts Not Reportable 06/19/19 03:05 Smudge Cells Not Reportable 06/19/19 03:05 Toxic Granulation Not Reportable 06/19/19 03:05 Toxic Vacuolation Not Reportable 06/19/19 03:05 Dohle Bodies Not Reportable 06/19/19 03:05 Pelger-Huet Anomaly Not Reportable 06/19/19 03:05 Karla Rods Not Reportable 06/19/19 03:05 Platelet Estimate Consistent w auto 06/19/19 03:05 Clumped Platelets Not Reportable 06/19/19 03:05 Plt Clumps, EDTA Not Reportable 06/19/19 03:05 Large Platelets Not Reportable 06/19/19 03:05 Giant Platelets Not Reportable 06/19/19 03:05 Platelet Satelliting Not Reportable 06/19/19 03:05 Plt Morphology Comment Not Reportable 06/19/19 03:05 RBC Morphology Normal 06/19/19 03:05 Dimorphic RBCs Not Reportable 06/19/19 03:05 Polychromasia Not Reportable 06/19/19 03:05 Hypochromasia Not Reportable 06/19/19 03:05 Poikilocytosis Not Reportable 06/19/19 03:05 Anisocytosis Not Reportable 06/19/19 03:05 Microcytosis Not Reportable 06/19/19 03:05 Macrocytosis Not Reportable 06/19/19 03:05 Spherocytes Not Reportable 06/19/19 03:05 Pappenheimer Bodies Not Reportable 06/19/19 03:05 Sickle Cells Not Reportable 06/19/19 03:05 Target Cells Not Reportable 06/19/19 03:05 Tear Drop Cells Not Reportable 06/19/19 03:05 Ovalocytes Not Reportable 06/19/19 03:05 Helmet Cells Not Reportable 06/19/19 03:05 [place] Bodies Not Reportable 06/19/19 03:05 [place] Rings Not Reportable 06/19/19 03:05 Burt Cells Not Reportable 06/19/19 03:05 Bite Cells Not Reportable 06/19/19 03:05 Crenated Cell Not Reportable 06/19/19 03:05 Elliptocytes Not Reportable 06/19/19 03:05 Acanthocytes (Spur) Not Reportable 06/19/19 03:05 Rouleaux Not Reportable 06/19/19 03:05 Hemoglobin C Crystals Not Reportable 06/19/19 03:05 Schistocytes Not Reportable 06/19/19 03:05 Malaria parasites Not Reportable 06/19/19 03:05 Abraham Bodies Not Reportable 06/19/19 03:05 Hem Pathologist Commnt No 06/19/19 03:05 PT 11.7 Sec. (12.2-14.9) L 06/19/19 03:05 INR 0.85 (0.87-1.13) L 06/19/19 03:05 APTT 23.6 Sec. (24.2-36.6) L 06/19/19 03:05 D-Dimer 845.61 ng/mlDDU (0-234) H 06/18/19 18:44 POC ABG pH 7.289 (7.35-7.45) L 06/18/19 21:25 POC ABG pCO2 51.1 (35-45) H 06/18/19 21:25 POC ABG pO2 252 (80-105) H 06/18/19 21:25 POC ABG HCO3 24.5 (22-26 mml/L) 06/18/19 21:25 POC ABG Total CO2 26 (23-27mmol/L) 06/18/19 21:25 POC ABG O2 Sat 100 06/18/19 21:25 POC ABG Base Excess -2 ((-2) - (+3)mmol/L) 06/18/19 21:25 FiO2 60 % 06/18/19 21:25 Sodium 141 mmol/L (137-145) 06/20/19 09:23 Potassium 4.4 mmol/L (3.6-5.0) 06/20/19 09:23 Chloride 103.3 mmol/L (98-107) 06/20/19 09:23 Carbon Dioxide 21 mmol/L (22-30) L 06/20/19 09:23 Anion Gap 21 mmol/L 06/20/19 09:23 BUN 17 mg/dL (9-20) 06/20/19 09:23 Creatinine 1.1 mg/dL (0.8-1.5) 06/20/19 09:23 Estimated GFR > 60 ml/min 06/20/19 09:23 BUN/Creatinine Ratio 15 % 06/20/19 09:23 Glucose 186 mg/dL (75-100) H 06/20/19 09:23 Lactic Acid 1.40 mmol/L (0.7-2.0) 06/18/19 23:10 Calcium 10.1 mg/dL (8.4-10.2) 06/20/19 09:23 Total Bilirubin 0.30 mg/dL (0.1-1.2) 06/20/19 09:23 AST 56 units/L (5-40) H 06/20/19 09:23 ALT 64 units/L (7-56) H 06/20/19 09:23 Alkaline Phosphatase 104 units/L (35-129) 06/20/19 09:23 Troponin T < 0.010 ng/mL (0.00-0.029) 06/18/19 18:44 NT-Pro-B Natriuret Pep 15.55 pg/mL (0-900) 06/18/19 18:44 Total Protein 8.7 g/dL (6.3-8.2) H 06/20/19 09:23 Albumin 4.4 g/dL (3.9-5) 06/20/19 09:23 Albumin/Globulin Ratio 1.0 % 06/20/19 09:23 Active Medications - Current Medications Current Medications: Generic Name Dose Route Start Last Admin Trade Name Freq PRN Reason Stop Dose Admin Acetaminophen 650 mg 06/18/19 22:11 Tylenol PO Q6H PRN Pain MILD(1-3)/Fever >100.5/BELL Albuterol 2.5 mg 06/19/19 14:00 Proventil IH Q6HRT PRN Dyspnea Albuterol/Ipratropium 1 ampul 06/19/19 20:00 06/20/19 15:15 Duoneb *Not For Prn Use* IH 1 ampul TIDRT DIEUDONNE Administration Chlorthalidone 25 mg 06/19/19 10:00 06/20/19 09:54 Thalitone PO 25 mg QDAY DIEUDONNE Administration Folic Acid 1 mg 06/19/19 10:00 06/20/19 09:53 Folvite PO 1 mg QDAY DIEUDONNE Administration Hydralazine HCl 10 mg 06/19/19 21:33 06/20/19 04:14 Apresoline IV 10 mg Q4H PRN Administration Blood Pressure Hydroxyzine HCl 25 mg 06/19/19 12:00 06/20/19 09:53 Atarax PO 25 mg QDAY DIEUDONNE Administration Lisinopril 20 mg 06/19/19 12:00 06/20/19 09:53 Zestril PO 20 mg QDAY DIEUDONNE Administration Magnesium Hydroxide 30 ml 06/18/19 22:11 Milk Of Magnesia PO Q4H PRN Constipation Methylprednisolone Sodium Succinate 40 mg 06/19/19 03:00 06/20/19 14:58 Solu-Medrol IV 40 mg Q6H DIEUDONNE Administration Mirtazapine 15 mg 06/19/19 22:00 06/19/19 21:04 Remeron PO 15 mg QHS DIEUDONNE Administration Mirtazapine 30 mg 06/19/19 22:00 06/19/19 21:04 Remeron PO 30 mg QHS DIEUDONNE Administration Miscellaneous Medication 1 tab 06/19/19 10:00 Bictegrav/Emtricit/Tenofov Ala PO QDAY DIEUDONNE Nicotine 21 mg 06/20/19 10:00 06/20/19 09:53 Habitrol TD 21 mg QDAY DIEUDONNE Administration Ondansetron HCl 4 mg 06/18/19 22:11 Zofran IV Q8H PRN Nausea And Vomiting Sodium Chloride 10 ml 06/19/19 10:00 06/20/19 10:36 Sodium Chloride Flush Syringe 10 Ml IV Not Given BID DIEUDONNE Sodium Chloride 10 ml 06/18/19 22:11 Sodium Chloride Flush Syringe 10 Ml IV PRN PRN LINE FLUSH Temazepam 15 mg 06/19/19 21:33 06/19/19 22:05 Restoril PO 15 mg QHS PRN Administration Sleep Tiotropium Beason 1 puff 06/19/19 12:00 06/20/19 02:25 Spiriva IH Not Given QDAY DIEUDONNE Nutrition/Malnutrition Assess - Dietary Evaluation Nutrition/Malnutrition Findings: Nutrition Notes Start: 06/19/19 12:42 Freq: Status: Active Protocol: Document 06/20/19 10:29 DEBBY (Rec: 06/20/19 10:38 [email or web address] [id number]) Co-Sign 06/20/19 10:29 LP Nutrition Notes Initial or Follow up Brief Note Current Diagnosis COPD Other Pertinent Diagnosis HIV, Lung CA Current Diet Cardiac Labs/Tests BG 220 Pertinent Medications Solumedrol Height 5 ft 8 in Weight 76 kg Usual Body Weight 76.4 kg [place] Body Weight (kg) 70.00 BMI 25.4 Subjective/Other Information F/U for diet education. Pt had stated he hadn't had previous education, but had to watch sodium for his mother. Pt was a good listener and seemed interested. Pt stated he has experienced no wt loss and his appetite has been good. Burn Absent Trauma Absent GI Symptoms None Minimum of two criteria No physical signs of malnutrition #1 Nutrition Diagnosis Food and nutrition-related knowledge deficit Etiology Lack of prior knowledge [employer] As Evidenced by Signs and Symptoms Accepted diet education Is patient on ventilator? No Is Patient Ambulatory and/or Out of Bed Yes REE-([facility]-ambulatory/OOB) [ 2026.350 [id number]] Calculation Used for Recommendations [facility] Additional Notes Protein: 61g-76g (0.8g-1g/kg) Fluid: 1 ml/kcal Nutrition Intervention Change Diet Order: Cardiac Revisit per MD consult or patient Sign Off request:
[2019-06-20 18:57] LABS: ABG Base Excess 1.2 mmol/L (-2.0-3.0); ABG HCO3 24.4 mmol/L (20.0-26.0); ABG Methemoglobin 0.6 % (0.0-1.5); ABG Oxygen Saturation 95.9 % (95.0-99.0); ABG PCO2 34.8 mm Hg; ABG PH 7.463 pH Units (7.350-7.450); ABG PO2 72.1 mm Hg (80.0-90.0)
--- NOTE | 2019-06-20 20:29 | Progress Note ---
Assessment and Plan 59yo AAM with PMH of Stage 1 nodule/left lung cancer ([place]-10/2018 with radiation), COPD, HTN, & HIV+ brought into the emergency room today with shortness of breath. Patient was said to have been found by EMS having difficulty breathing with oxygen saturation in the 60s. He was given Solu- Medrol, epinephrine and placed on oxygen. He was said to be going in and out of responsiveness in route to the hospital. Denies any fever or chills, no nausea vomiting and no diarrhea. Upon arrival in the emergency room patient was placed on BiPAP and given some nebulizing treatment with improvement in his oxygen saturation. He had an elevated d-dimer however a CT angiogram was negative for pulmonary embolism. Patient is awake and alert. Patient endorsed mild shortness of breath while walking to ER as his was leaving to go to work. Patient reports follow-up with oncology next month. Patient has O2 saturation of 94% on room air. Patient is afebrile with no leukocytosis. Patient has history of 47 pack years (1.5 packs daily), still continues to smoke 1 to 2 cigarettes daily, and also uses almost marijuana on a daily basis. Patient ABG 06/20/2019 pH 7.46, pCO2 35, pO2 72, HCO3 24, O2 Sat 96 on room air. Patient currently using nicotine patch. Patient wants to follow-up at [place] per his lung cancer. Patient already receiving treatment at [place]. He will follow-up as soon as he is discharged from the hospital. I stressed the importance of the follow-up. Chest X-ray Reported 06/18/2019 Left upper lobe nodular parenchymal density with several adjacent surgical clips. Additional pulmonary nodule within left mid lung field. No pneumothorax. Left-sided pulmonary nodules. Recommend chest CT. Chest CTA Reported 06/18/[address] evidence for pulmonary embolism. 2. There is a 2.4 cm spiculated mass in the left upper lobe. There are 2 surgical clips adjacent to the mass. The appearance is worrisome for a bronchogenic carcinoma. 3. 2 cm noncalcified pulmonary nodule in the left upper lobe, just lateral to the pulmonary hilum. This is highly worrisome for pulmonary metastasis. 4. Right apical large bleb. - Patient Problems (1) Acute hypercapnic respiratory failure Current Visit: Yes Status: Acute Plan to address problem: 1. 2L O2 via nasal canula if O2 saturation less than 90% 2. Albuterol/Atrovent aerosol treatment q6 3. Continue IV Solumedrol 4. Recommend DVT and GI prophylaxis. (2) COPD exacerbation Current Visit: Yes Status: Acute Plan to address problem: 1. 2L O2 via nasal canula if O2 saturation less than 90% 2. Albuterol/Atrovent aerosol treatment q6 3. Continue IV Solumedrol 4. DVT and GI prophylaxis. 5. Counselled to stop smoking cigarettes as well as Marijuana. (3) DVT prophylaxis Current Visit: Yes Status: Acute Plan to address problem: Recommend DVT prophylaxis. (4) HIV (human immunodeficiency virus infection) Current Visit: Yes Status: Acute Plan to address problem: Management as per Infectious diseases. (5) Lung cancer Current Visit: Yes Status: Acute Qualifiers: Laterality: left Lung location: unspecified part of lung Qualified Code(s): C34.92 - Malignant neoplasm of unspecified part of left bronchus or lung Plan to address problem: 1. 2L O2 via nasal canula if O2 saturation less than 90% 2. Albuterol/Atrovent aerosol treatment q6 3. Continue IV Solumedrol 4. Patient presently following at [place]. Says receiving radiation treatments at [place]. 5. Patient wants to follow at [place] for lung nodules. Patient states he will follow-up with them after being discharged from hospital. 6. I stressed the importance of follow-up on his lung cancer at [place]. Subjective Date of service: 06/20/19 Interval history: 59yo AAM with PMH of Stage 1 nodule/left lung cancer ([place]-10/2018 with radiation), COPD, HTN, & HIV+ brought into the emergency room today with shortness of breath. Patient was said to have been found by EMS having difficulty breathing with oxygen saturation in the 60s. He was given Solu- Medrol, epinephrine and placed on oxygen. He was said to be going in and out of responsiveness in route to the hospital. Denies any fever or chills, no nausea vomiting and no diarrhea. Upon arrival in the emergency room patient was placed on BiPAP and given some nebulizing treatment with improvement in his oxygen saturation. He had an elevated d-dimer however a CT angiogram was negative for pulmonary embolism. Patient is awake and alert. Patient endorsed mild shortness of breath while walking to ER as his was leaving to go to work. Patient reports follow-up with oncology next month. Patient has O2 saturation of 94% on room air. Patient is afebrile with no leukocytosis. Patient has history of 47 pack years (1.5 packs daily), still continues to smoke 1 to 2 cigarettes daily, and also uses almost marijuana on a daily basis. Patient ABG 06/20/2019 pH 7.46, pCO2 35, pO2 72, HCO3 24, O2 Sat 96 on room air. Patient currently using nicotine patch. Patient wants to follow-up at [place] per his lung cancer. Patient already receiving treatment at [place]. He will follow-up as soon as he is discharged from the hospital. I stressed the importance of the follow-up. Chest X-ray Reported 06/18/2019 Left upper lobe nodular parenchymal density with several adjacent surgical clips. Additional pulmonary nodule within left mid lung field. No pneumothorax. Left-sided pulmonary nodules. Recommend chest CT. Chest CTA Reported 06/18/[address] evidence for pulmonary embolism. 2. There is a 2.4 cm spiculated mass in the left upper lobe. There are 2 surgical clips adjacent to the mass. The appearance is worrisome for a bronchogenic carcinoma. 3. 2 cm noncalcified pulmonary nodule in the left upper lobe, just lateral to the pulmonary hilum. This is highly worrisome for pulmonary metastasis. 4. Right apical large bleb. Objective Vital Signs - 12hr 06/20/19 06/20/19 06/20/19 08:28 10:00 12:03 Temperature 98.0 F Pulse Rate 90 88 Pulse Rate [ 90 Anterior Bilateral Throughout] Respiratory 18 Rate Respiratory 16 Rate [Anterior Bilateral Throughout] Blood Pressure 148/98 O2 Sat by Pulse 95 Oximetry 06/20/19 06/20/19 06/20/19 15:15 17:56 19:18 Temperature 98.7 F 98.8 F Pulse Rate 93 H 111 H Pulse Rate [ 106 H Anterior Bilateral Throughout] Respiratory 18 16 Rate Respiratory 16 Rate [Anterior Bilateral Throughout] Blood Pressure 160/111 137/95 O2 Sat by Pulse 98 94 Oximetry Constitutional: no acute distress, alert Eyes: non-icteric ENT: oropharynx moist Neck: supple Effort: normal Cardiovascular: regular rate and rhythm Gastrointestinal: normoactive bowel sounds, soft, non-tender Integumentary: normal Extremities: no cyanosis Neurologic: normal mental status Psychiatric: mood appropriate, affect normal CBC and BMP: 06/19/19 03:05 06/20/19 09:23 ABG, PT/INR, D-dimer: ABG POC ABG pH 7.289 (7.35-7.45) L 06/18/19 21:25 ABG pH 7.463 pH Units (7.350-7.450) H 06/20/19 18:20 POC ABG pCO2 51.1 (35-45) H 06/18/19 21:25 ABG pCO2 34.8 mm Hg 06/20/19 18:20 POC ABG pO2 252 (80-105) H 06/18/19 21:25 ABG pO2 72.1 mm Hg (80.0-90.0) L 06/20/19 18:20 POC ABG HCO3 24.5 (22-26 mml/L) 06/18/19 21:25 POC ABG Total CO2 26 (23-27mmol/L) 06/18/19 21:25 POC ABG O2 Sat 100 06/18/19 21:25 ABG O2 Saturation 95.9 % (95.0-99.0) 06/20/19 18:20 PT/INR, D-dimer PT 11.7 Sec. (12.2-14.9) L 06/19/19 03:05 INR 0.85 (0.87-1.13) L 06/19/19 03:05 D-Dimer 845.61 ng/mlDDU (0-234) H 06/18/19 18:44 Abnormal lab findings: Abnormal Labs 06/18/19 06/18/19 06/18/19 18:44 18:44 18:44 MCV 104 H MCH 34 H RDW 15.5 H Eos % (Auto) 6.7 H Seg Neuts % (Manual) Lymphocytes % (Manual) Lymphocytes # (Manual) PT INR APTT D-Dimer 845.61 H POC ABG pH ABG pH POC ABG pCO2 POC ABG pO2 ABG pO2 Oxyhemoglobin Carbon Dioxide 17 L Glucose 159 H Lactic Acid AST 139 H ALT 81 H Total Protein 06/18/19 06/18/19 06/18/19 18:44 18:44 21:25 MCV MCH RDW Eos % (Auto) Seg Neuts % (Manual) Lymphocytes % (Manual) Lymphocytes # (Manual) PT INR APTT D-Dimer POC ABG pH 7.039 L 7.289 L ABG pH POC ABG pCO2 51.1 H POC ABG pO2 156 H 252 H ABG pO2 Oxyhemoglobin Carbon Dioxide Glucose Lactic Acid 3.20 H* AST ALT Total Protein 06/19/19 06/19/19 06/19/19 03:05 03:05 03:05 MCV 103 H MCH 34 H RDW Eos % (Auto) Seg Neuts % (Manual) 94.0 H Lymphocytes % (Manual) 4.0 L Lymphocytes # (Manual) 0.2 L PT 11.7 L INR 0.85 L APTT 23.6 L D-Dimer POC ABG pH ABG pH POC ABG pCO2 POC ABG pO2 ABG pO2 Oxyhemoglobin Carbon Dioxide 21 L Glucose 220 H Lactic Acid AST ALT Total Protein 06/20/19 06/20/19 09:23 18:20 MCV MCH RDW Eos % (Auto) Seg Neuts % (Manual) Lymphocytes % (Manual) Lymphocytes # (Manual) PT INR APTT D-Dimer POC ABG pH ABG pH 7.463 H POC ABG pCO2 POC ABG pO2 ABG pO2 72.1 L Oxyhemoglobin 94.2 L Carbon Dioxide 21 L Glucose 186 H Lactic Acid AST 56 H ALT 64 H Total Protein 8.7 H Chest x-ray: report reviewed, image reviewed CT scan - chest: report reviewed, image reviewed Additional Studies: Chest X-ray Reported 06/18/2019 Left upper lobe nodular parenchymal density with several adjacent surgical clips. Additional pulmonary nodule within left mid lung field. No pneumothorax. Left-sided pulmonary nodules. Recommend chest CT. Chest CTA Reported 06/18/[address] evidence for pulmonary embolism. 2. There is a 2.4 cm spiculated mass in the left upper lobe. There are 2 surgical clips adjacent to the mass. The appearance is worrisome for a bronchogenic carcinoma. 3. 2 cm noncalcified pulmonary nodule in the left upper lobe, just lateral to the pulmonary hilum. This is highly worrisome for pulmonary metastasis. 4. Right apical large bleb.
[2019-06-20] MEDS: TEMAZEPAM 15 MG CAP PO PRN (21:53)
[2019-06-20] MEDS: MIRTAZAPINE 15 MG TAB PO SCH (21:54)
[2019-06-20] MEDS: MIRTAZAPINE 30 MG TAB PO SCH (21:54)
[2019-06-21] MEDS: hydrALAZINE 20 MG/1 ML INJ IV PRN (03:15)
[2019-06-21] MEDS: methylPREDNISolone Sod Succinate 40 MG/1 ML INJ IV SCH ×3 (03:15→15:03)
[2019-06-21] MEDS: TIOTROPIUM 18 MCG CAP INHALATION IH SCH (09:35)
[2019-06-21] MEDS: IPRATROPIUM/ALBUTEROL SULFATE 3 ML AMPUL.NEB IH SCH ×2 (09:35→14:48)
[2019-06-21] MEDS: hydrOXYzine HCL 25 MG TAB PO SCH (10:34)
[2019-06-21] MEDS: LISINOPRIL 20 MG TAB PO SCH (10:34)
[2019-06-21] MEDS: FOLIC ACID 1 MG TAB PO SCH (10:35)
[2019-06-21] MEDS: CHLORTHALIDONE 25 MG TAB PO SCH (10:35)
[2019-06-21] MEDS: NICOTINE 21 MG/24 HR PATCH TD SCH (10:35)
[2019-06-21 11:52] VITALS: BP 138/96
--- NOTE | 2019-06-21 13:21 | Discharge Summary ---
Providers - Providers Date of Admission: 06/18/19 21:36 Date of discharge: 06/21/19 Attending physician: JIMMY ZHANG 06/18/19 22:12 Consult to Dietitian/Nutrition [CONS] Routine Physician Instructions: Reason For Exam: Reason for Consult: Diet education Consult to Physician [CONS] Routine Comment: Consulting Provider: LUEP GARCIA Physician Instructions: Reason For Exam: HYPERCAPNIC RESPIRATORY FAILURE Primary care physician: CHACORTA CARCAMO MD Hospitalization Condition: Fair Disposition: [id number] TO HOME OR SELFCARE Exam - Constitutional Vitals: Temp Pulse Resp BP Pulse Ox 98.3 F 90 18 138/96 96 06/21/19 11:50 06/21/19 11:50 06/21/19 11:50 06/21/19 11:50 06/21/19 11:50 Plan Activity: advance as tolerated Diet: regular Plan of Treatment: 1.Follow up with PCP in 1 week. 2.Follow up with Oncologist at [facility] as scheduled. 3.Follow up with Pulmonology ion 1 week Follow up with: CHACORTA CARCAMO MD [Primary Care Provider] - 3-5 Days Prescriptions: Nicotine [Habitrol] 21 mg TD QDAY #30 patch Prednisone [predniSONE 5 mg (6-Day Pack, 21 Tabs)] 5 mg PO .TAPER #1 tab.ds.pk
--- NOTE | 2019-06-21 17:23 | Progress Note ---
Assessment and Plan 59yo AAM with PMH of Stage 1 nodule/left lung cancer ([place]-10/2018 with radiation), COPD, HTN, & HIV+ brought into the emergency room today with shortness of breath. Patient was said to have been found by EMS having difficulty breathing with oxygen saturation in the 60s. He was given Solu- Medrol, epinephrine and placed on oxygen. He was said to be going in and out of responsiveness in route to the hospital. Denies any fever or chills, no nausea vomiting and no diarrhea. Upon arrival in the emergency room patient was placed on BiPAP and given some nebulizing treatment with improvement in his oxygen saturation. He had an elevated d-dimer however a CT angiogram was negative for pulmonary embolism. Patient is awake and alert. Patient endorsed mild shortness of breath while walking to ER as his was leaving to go to work. Patient reports follow-up with oncology next month. Patient has O2 saturation of 95% on room air. Patient is afebrile with no leukocytosis. Patient has history of 47 pack years (1.5 packs daily), still continues to smoke 1 to 2 cigarettes daily, and also uses almost marijuana on a daily basis. Patient ABG 06/20/2019 pH 7.46/pCO2 35/pO2 72/HCO3 24/O2 Sat 96 on room air. Patient currently using nicotine patch. Patient wants to follow-up at [facility] per his lung cancer. Patient already receiving treatment at [facility]. He will follow-up as soon as he is discharged from the hospital. I stressed the importance of the follow-up. Chest X-ray Reported 06/18/2019 Left upper lobe nodular parenchymal density with several adjacent surgical clips. Additional pulmonary nodule within left mid lung field. No pneumothorax. Left-sided pulmonary nodules. Recommend chest CT. Chest CTA Reported 06/18/[address] evidence for pulmonary embolism. 2. There is a 2.4 cm spiculated mass in the left upper lobe. There are 2 surgical clips adjacent to the mass. The appearance is worrisome for a bronchogenic carcinoma. 3. 2 cm noncalcified pulmonary nodule in the left upper lobe, just lateral to the pulmonary hilum. This is highly worrisome for pulmonary metastasis. 4. Right apical large bleb. - Patient Problems (1) Acute hypercapnic respiratory failure Current Visit: Yes Status: Acute Plan to address problem: 1. 2L O2 via nasal canula if O2 saturation less than 90% 2. Albuterol/Atrovent aerosol treatment q6 3. Continue IV Solumedrol 4. Recommend DVT and GI prophylaxis. (2) COPD exacerbation Current Visit: Yes Status: Acute Plan to address problem: 1. 2L O2 via nasal canula if O2 saturation less than 90% 2. Albuterol/Atrovent aerosol treatment q6 3. Continue IV Solumedrol 4. DVT and GI prophylaxis. 5. Counselled to stop smoking cigarettes as well as Marijuana. (3) DVT prophylaxis Current Visit: Yes Status: Acute Plan to address problem: Recommend DVT prophylaxis. (4) HIV (human immunodeficiency virus infection) Current Visit: Yes Status: Acute Plan to address problem: Management as per Infectious diseases. (5) Lung cancer Current Visit: Yes Status: Acute Qualifiers: Laterality: left Lung location: unspecified part of lung Qualified Code(s): C34.92 - Malignant neoplasm of unspecified part of left bronchus or lung Plan to address problem: 1. 2L O2 via nasal canula if O2 saturation less than 90% 2. Albuterol/Atrovent aerosol treatment q6 3. Continue IV Solumedrol 4. Patient presently following at [place]. Says receiving radiation treatments at [facility]. 5. Patient wants to follow at [facility] for lung nodules. Patient states he will follow-up with them after being discharged from hospital. 6. I stressed the importance of follow-up on his lung cancer at [facility]. Subjective Date of service: 06/21/19 Interval history: 59yo AAM with PMH of Stage 1 nodule/left [facility] COPD, HTN, & HIV+ brought into the emergency room today with shortness of breath. Patient was said to have been found by EMS having difficulty breathing with oxygen saturation in the 60s. He was given Solu-Medrol, epinephrine and placed on oxygen. He was said to be going in and out of re sponsiveness in route to the hospital. Denies any fever or chills, no nausea vomiting and no diarrhea. Upon arrival in the emergency room patient was placed on BiPAP and given some nebulizing treatment with improvement in his oxygen saturation. He had an elevated d-dimer however a CT angiogram was negative for pulmonary embolism. Patient is awake and alert. Patient endorsed mild shortness of breath while walking to ER as his was leaving to go to work. Patient reports follow-up with oncology next month. Patient has O2 saturation of 95% on room air. Patient is afebrile with no leukocytosis. Patient has history of 47 pack years (1.5 packs daily), still continues to smoke 1 to 2 cigarettes daily, and also uses almost marijuana on a daily basis. Patient ABG 06/20/2019 pH 7.46, pCO2 35, pO2 72, HCO3 24, O2 Sat 96 on room air. Patient currently using nicotine patch. Patient wants to follow-up at [facility] per his lung cancer. Patient already receiving treatment at [facility]. He will follow-up as soon as he is discharged from the hospital. I stressed the importance of the follow-up. Chest X-ray Reported 06/18/2019 Left upper lobe nodular parenchymal density with several adjacent surgical clips. Additional pulmonary nodule within left mid lung field. No pneumothorax. Left-sided pulmonary nodules. Recommend chest CT. Chest CTA Reported 06/18/[address] evidence for pulmonary embolism. 2. There is a 2.4 cm spiculated mass in the left upper lobe. There are 2 surgical clips adjacent to the mass. The appearance is worrisome for a bronchogenic carcinoma. 3. 2 cm noncalcified pulmonary nodule in the left upper lobe, just lateral to th e pulmonary hilum. This is highly worrisome for pulmonary metastasis. 4. Right apical large bleb. Objective Vital Signs - 12hr 06/21/19 06/21/19 06/21/19 08:05 09:35 10:00 Temperature 98.3 F Pulse Rate 83 84 Pulse Rate [ 108 H Anterior Bilateral Throughout] Respiratory 18 Rate Respiratory 18 Rate [Anterior Bilateral Throughout] Blood Pressure 152/102 O2 Sat by Pulse 95 Oximetry 06/21/19 06/21/19 06/21/19 10:34 11:50 14:48 Temperature 98.3 F Pulse Rate 83 90 Pulse Rate [ 106 H Anterior Bilateral Throughout] Respiratory 18 Rate Respiratory 18 Rate [Anterior Bilateral Throughout] Blood Pressure 152/102 138/96 O2 Sat by Pulse 96 Oximetry Constitutional: no acute distress, alert Eyes: non-icteric ENT: oropharynx moist Neck: supple Effort: normal Cardiovascular: regular rate and rhythm Gastrointestinal: normoactive bowel sounds, soft, non-tender Integumentary: normal Extremities: no cyanosis Neurologic: normal mental status Psychiatric: mood appropriate, affect normal CBC and BMP: 06/19/19 03:05 06/20/19 09:23 ABG, PT/INR, D-dimer: ABG POC ABG pH 7.289 (7.35-7.45) L 06/18/19 21:25 ABG pH 7.463 pH Units (7.350-7.450) H 06/20/19 18:20 POC ABG pCO2 51.1 (35-45) H 06/18/19 21:25 ABG pCO2 34.8 mm Hg 06/20/19 18:20 POC ABG pO2 252 (80-105) H 06/18/19 21:25 ABG pO2 72.1 mm Hg (80.0-90.0) L 06/20/19 18:20 POC ABG HCO3 24.5 (22-26 mml/L) 06/18/19 21:25 POC ABG Total CO2 26 (23-27mmol/L) 06/18/19 21:25 POC ABG O2 Sat 100 06/18/19 21:25 ABG O2 Saturation 95.9 % (95.0-99.0) 06/20/19 18:20 PT/INR, D-dimer PT 11.7 Sec. (12.2-14.9) L 06/19/19 03:05 INR 0.85 (0.87-1.13) L 06/19/19 03:05 D-Dimer 845.61 ng/mlDDU (0-234) H 06/18/19 18:44 Abnormal lab findings: Abnormal Labs 06/18/19 06/18/19 06/18/19 18:44 18:44 18:44 MCV 104 H MCH 34 H RDW 15.5 H Eos % (Auto) 6.7 H Seg Neuts % (Manual) Lymphocytes % (Manual) Lymphocytes # (Manual) PT INR APTT D-Dimer 845.61 H POC ABG pH ABG pH POC ABG pCO2 POC ABG pO2 ABG pO2 Oxyhemoglobin Carbon Dioxide 17 L Glucose 159 H Lactic Acid AST 139 H ALT 81 H Total Protein 06/18/19 06/18/19 06/18/19 18:44 18:44 21:25 MCV MCH RDW Eos % (Auto) Seg Neuts % (Manual) Lymphocytes % (Manual) Lymphocytes # (Manual) PT INR APTT D-Dimer POC ABG pH 7.039 L 7.289 L ABG pH POC ABG pCO2 51.1 H POC ABG pO2 156 H 252 H ABG pO2 Oxyhemoglobin Carbon Dioxide Glucose Lactic Acid 3.20 H* AST ALT Total Protein 06/19/19 06/19/19 06/19/19 03:05 03:05 03:05 MCV 103 H MCH 34 H RDW Eos % (Auto) Seg Neuts % (Manual) 94.0 H Lymphocytes % (Manual) 4.0 L Lymphocytes # (Manual) 0.2 L PT 11.7 L INR 0.85 L APTT 23.6 L D-Dimer POC ABG pH ABG pH POC ABG pCO2 POC ABG pO2 ABG pO2 Oxyhemoglobin Carbon Dioxide 21 L Glucose 220 H Lactic Acid AST ALT Total Protein 06/20/19 06/20/19 09:23 18:20 MCV MCH RDW Eos % (Auto) Seg Neuts % (Manual) Lymphocytes % (Manual) Lymphocytes # (Manual) PT INR APTT D-Dimer POC ABG pH ABG pH 7.463 H POC ABG pCO2 POC ABG pO2 ABG pO2 72.1 L Oxyhemoglobin 94.2 L Carbon Dioxide 21 L Glucose 186 H Lactic Acid AST 56 H ALT 64 H Total Protein 8.7 H
== END 2019-06-21 16:30 | disposition home or self-care (01) | DRG 189 ==
LOC: ED 18:17 → IMCU 21:36 → 4A 06-19 09:40
PROVIDERS: ADMIT Internal Medicine Geriatric Medicine; ATTEND Internal Medicine
PROC: 4A033R1 Measurement of Arterial Saturation, Peripheral, Percutaneous Approach (ICD-10-PCS; principal; 2019-06-18)
PROC: 5A09357 Assistance with Respiratory Ventilation, Less than 24 Consecutive Hours, Continuous Positive Airway Pressure (ICD-10-PCS; 2019-06-18)
DX: J96.01 Acute respiratory failure with hypoxia (principal); J96.02 Acute respiratory failure with hypercapnia; J44.1 Chronic obstructive pulmonary disease with (acute) exacerbation; B20 Human immunodeficiency virus [HIV] disease; E87.2 Acidosis; G89.29 Other chronic pain; F17.210 Nicotine dependence, cigarettes, uncomplicated; C34.92 Malignant neoplasm of unspecified part of left bronchus or lung; I10 Essential (primary) hypertension
CPT/HCPCS: 36415; 36600; 71045; 71275; 80048; 80053; 82140; 82803; 83880; 84484; 85007; 85025; 85379; 85610; 85730; 93005; 93010; 94640; 99406; G0378; J0360; J2920; J2930; Q9967

== ENCOUNTER 2019-07-04 07:07 | Emergency (ER) | payer MEDICAID ==
[2019-07-04 07:22] VITALS: BP 156/105
[2019-07-04] MEDS ORDERED: ALBUTEROL 2.5 MG/3 ML NEBU IH ONE (08:02)
== END 2019-07-04 10:27 | disposition left against medical advice (07) ==
LOC: ED 07:07
DX: R06.02 Shortness of breath (principal); Z53.21 Procedure and treatment not carried out due to patient leaving prior to being seen by health care provider

== ENCOUNTER 2020-01-25 05:44 | Emergency (ER) | payer SELFPAY ==
[~2020-01-25 05:44] MED LIST: ATROPINE 0.1% (1 MG/10 ML) CARDIAC SYRINGE ONE; EPINEPHrine 1 MG/10 ML SYRINGE ONE; SODIUM BICARB 8.4% 50 MEQ/50 ML SYRINGE IV ONE
--- NOTE | 2020-01-25 05:52 | Emergency Department Report ---
ED CPR HPI - General Stated Complaint: CARDIAC ARREST Time Seen by Provider: 01/25/20 05:44 Source: EMS Mode of arrival: Stretcher Limitations: Altered Mental Status, Physical Limitation - History of Present Illness Initial Comments: Patient is a 59-year-old male who presents emergency room for cardiac arrest. Patient was a witnessed arrest by his . Patient brought in by EMS. EMS states that the patient was a witnessed arrest and they began CPR. Patient was given rounds of epi and then went into V. fib and shocked. Patient then brought to the emergency room. CPR was continued. See code note. MD Complaint: stopped breathing, collapsed during activity -: minute(s) Place: home Bystander CPR Performed: No AED Applied by Bystander/Lawyer Criminal: No Shock Advised: No Initial Findings in the Field: unresponsive, no respirations, no pulse ROSC in the Field: No Associated Injuries: No Associated Symptoms: shortness of breath Treatments Prior to Arrival: BMV, other airway device, chest compressions, defribrillated shocks #, epinephrine mgs # - Related Data Home Medications Medication Instructions Recorded Confirmed Last Taken Albuterol Mdi (or & Nicu Only) 1 puff IH Q6HR PRN 06/19/19 06/19/19 06/17/19 [ProAir HFA Inhaler] Bictegrav/Emtricit/Tenofov Ala 1 tab PO QDAY 06/19/19 06/19/19 06/17/19 [Biktarvy 50-200-25 mg (Nf)] Chlorthalidone [Thalitone] 25 mg PO QDAY 06/19/19 06/19/19 06/17/19 Folic Acid 1 tab PO QDAY 06/19/19 06/19/19 06/17/19 Mirtazapine [Remeron 45mg TAB] 45 mg PO QDAY 06/19/19 06/19/19 06/17/19 Sildenafil Citrate [Viagra] 1 tab PO PRN 06/19/19 06/19/19 06/17/19 Tiotropium Palo [Spiriva] 1 puff IH QDAY 06/19/19 06/19/19 06/17/19 Triamcinolone 0.1% [Kenalog 0.1% 1 applic TP TID 06/19/19 06/19/19 06/17/19 CREAM] hydrOXYzine HCL [Atarax] 1 tab PO QDAY 06/19/19 06/19/19 06/17/19 lisinopriL [Zestril TAB] 1 tab PO QDAY 06/19/19 06/19/19 06/17/19 Previous Rx's Medication Instructions Recorded Last Taken Type Nicotine [Habitrol] 21 mg TD QDAY #30 patch 06/21/19 Unknown Rx Prednisone [predniSONE 5 mg (6-Day 5 mg PO .TAPER #1 tab.ds.pk 06/21/19 Unknown Rx Pack, 21 Tabs)] Allergies Allergy/AdvReac Type Severity Reaction Status Date / Time No Known Allergies Allergy Unverified 07/12/13 10:15 ED Review of Systems ROS: Stated complaint: CARDIAC ARREST Other details as noted in HPI Comment: Unobtainable due to pts medical conditions ED Past Medical Hx - Past Medical History Previous Medical History?: Yes Hx Hypertension: Yes Hx Arthritis: Yes Hx Asthma: Yes Hx COPD: Yes Hx HIV: Yes Additional medical history: chronic back pain - Surgical History Past Surgical History?: No - Family History Family history: no significant - Social History Smoking Status: Current Every Day Smoker Substance Use Type: None - Medications Home Medications: Home Medications Medication Instructions Recorded Confirmed Last Taken Type Albuterol Mdi (or & Nicu Only) 1 puff IH Q6HR PRN 06/19/19 06/19/19 06/17/19 History [ProAir HFA Inhaler] Bictegrav/Emtricit/Tenofov Ala 1 tab PO QDAY 06/19/19 06/19/19 06/17/19 History [Biktarvy 50-200-25 mg (Nf)] Chlorthalidone [Thalitone] 25 mg PO QDAY 06/19/19 06/19/19 06/17/19 History Folic Acid 1 tab PO QDAY 06/19/19 06/19/19 06/17/19 History Mirtazapine [Remeron 45mg TAB] 45 mg PO QDAY 06/19/19 06/19/19 06/17/19 History Sildenafil Citrate [Viagra] 1 tab PO PRN 06/19/19 06/19/19 06/17/19 History Tiotropium Palo [Spiriva] 1 puff IH QDAY 06/19/19 06/19/19 06/17/19 History Triamcinolone 0.1% [Kenalog 0.1% 1 applic TP TID 06/19/19 06/19/19 06/17/19 History CREAM] hydrOXYzine HCL [Atarax] 1 tab PO QDAY 06/19/19 06/19/19 06/17/19 History lisinopriL [Zestril TAB] 1 tab PO QDAY 06/19/19 06/19/19 06/17/19 History Nicotine [Habitrol] 21 mg TD QDAY #30 patch 06/21/19 Unknown Rx Prednisone [predniSONE 5 mg (6-Day 5 mg PO .TAPER #1 tab.ds.pk 06/21/19 Unknown Rx Pack, 21 Tabs)] ED Physical Exam - General General appearance: obtunded - Head Head exam: Present: atraumatic, normocephalic - Eye Eye exam: Present: normal appearance - ENT ENT exam: Present: mucous membranes dry - Neck Neck exam: Present: normal inspection - Respiratory Respiratory exam: Present: decreased breath sounds, other (Patient intubated) - Cardiovascular Cardiovascular Exam: Present: regular rate, normal rhythm. Absent: systolic murmur, diastolic murmur, rubs, gallop - GI/Abdominal GI/Abdominal exam: Present: soft - Rectal Rectal exam: Present: deferred - Extremities Exam Extremities exam: Present: normal inspection - Back Exam Back exam: Present: normal inspection - Neurological Exam Neurological exam: Present: altered - Skin Skin exam: Present: warm, dry, intact, normal color. Absent: rash ED Course - Reevaluation(s) Reevaluation #1: Patient arrived via EMS. CPR continued. 01/25/20 05:43 Patient had spontaneous return of circulation. Patient placed on a monitor. See code note. 01/25/20 05:47 Reevaluation #2: Patient went back into cardiac arrest. Patient patient PEA on the monitor. No pulse noted. Patient given epi. 01/25/20 06:04 Reevaluation #3: Resuscitation efforts terminated due to no signs of life. No pulse noted. No cardiac motion on ultrasound. See code note. 01/25/20 06:07 - Intubation Time Out Performed: Yes Laryngoscope: fiberoptic video scope Size: 3 Assist Device Used: fiberoptic device ET Tube Size: 7.5 Tube Secured Depth (cm): 24 Tube Secured Location: teeth Tube Placement Confirmation: visualized tube passing t, equal breath sounds bilat, no breath sounds over epi, confirmation by capnometr Patient Tolerated Procedure: well, no complications Additional Comments: Patient's Naldo tube placed by EMS was removed and a 7.5 ET tube placed. ED Medical Decision Making - Medical Decision Making Patient is a 59-year-old male that presents emergency room with a cardiac arrest. Patient was in a cardiac arrest once patient arrived. Patient had spontaneous return of circulation and then went back into a cardiac arrest. The resuscitation efforts were terminated due to no signs of life and no pulse and no cardiac motion. See code note. Patient was intubated initially with EMS with a Naldo tube and the patient was extubated and reintubated with a standard ET tube. See procedure note. - Differential Diagnosis Cardiac arrest, CT, PE, pneumonia Critical Care Time: Yes Critical care time in (mins) excluding proc time.: 35 Critical care attestation.: If time is entered above; I have spent that time in minutes in the direct care of this critically ill patient, excluding procedure time. Critical Care Time: 35 minutes ED Disposition Clinical Impression: Cardiac arrest Disposition: DC-20 Is pt being admited?: No Does the pt Need Aspirin: No Condition: Undetermined Time of Disposition: 06:11
== END 2020-01-25 07:00 ==
LOC: ED 05:44
DX: I46.9 Cardiac arrest, cause unspecified (principal); I10 Essential (primary) hypertension; M19.90 Unspecified osteoarthritis, unspecified site; J44.9 Chronic obstructive pulmonary disease, unspecified; F17.200 Nicotine dependence, unspecified, uncomplicated; Z79.899 Other long term (current) drug therapy; Z21 Asymptomatic human immunodeficiency virus [HIV] infection status
CPT/HCPCS: 31500; 92950; 93005; 99291; J0171; J0461